=== PATIENT | male | born 1965 | race Hispanic/Latino ===

== ENCOUNTER 2019-07-22 00:07 | Emergency (ER) | payer SELFPAY ==
[2019-07-22 00:55] LABS: #Basophils 0.1 thou/uL (0.0-0.2); #Lymphocytes 3.1 thou/uL (1.20-3.40); #Monocytes 0.8 thou/uL (0.11-0.59); #Neutrophils 8.3 thou/uL (1.40-6.50); %Basophils 0.9 % (0.0-1.0); %Eosinophils 0.1 % (0.0-10.0); %Lymphocytes 25.5 % (21.0-51.0); %Monocytes 6.4 % (0.0-10.0); %Neutrophils 67.1 % (42.0-75.0); Mean Corpuscular HGB CONC 32.5 g/dL (32.0-36.0); Mean Corpuscular Hemoglobin 29.6 pg (27.0-31.0); Mean Corpuscular Volume 90.9 fL (78.0-98.0); Mean Platelet Volume 6.5 fL (7.4-10.4); Platelet Count 256 thou/uL (130-400); Red Blood Cell (RBC) Count 2.35 mill/uL (4.70-6.10); White Blood Cell (WBC) Count 12.3 thou/uL (4.8-10.8)
[2019-07-22 00:56] LABS: ALT (SGPT) 72 U/L (8-55); AST (SGOT) 176 U/L (5-34); Albumin 2.8 g/dL (3.5-5.0); Alkaline Phosphatase 134 U/L (40-110); Anion Gap 16 mmol/L (10-20); BUN (Urea Nitrogen) 27 mg/dL (8.4-25.7); Bilirubin, Total 1.1 mg/dL (0.2-1.2); Calc. Creatinine Clearance 0 mL/min (70-130); Calcium 7.2 mg/dL (7.8-10.44); Carbon Dioxide 20 mmol/L (22-29); Chloride 106 mmol/L (98-107); Estimated GFR-MDRD Greater than 90; Globulin 3.3 g/dL (2.4-3.5); Glucose 121 mg/dL (70-105); Potassium 4.9 mmol/L (3.5-5.1); Protein, Total 6.1 g/dL (6.0-8.3); Sodium 137 mmol/L (136-145)
[2019-07-22 00:58] LABS: Lactic Acid 4.1 mmol/L (0.5-2.2)
[2019-07-22 01:30] LABS: #Basophils 0.1 thou/uL (0.0-0.2); #Lymphocytes 2.9 thou/uL (1.20-3.40); #Monocytes 0.5 thou/uL (0.11-0.59); #Neutrophils 9.3 thou/uL (1.40-6.50); %Basophils 0.9 % (0.0-1.0); %Eosinophils 0.4 % (0.0-10.0); %Lymphocytes 22.4 % (21.0-51.0); %Monocytes 4.2 % (0.0-10.0); %Neutrophils 72.1 % (42.0-75.0); Hemoglobin 5.5 g/dL (14.0-18.0); Mean Corpuscular HGB CONC 31.8 g/dL (32.0-36.0); Mean Corpuscular Hemoglobin 29.1 pg (27.0-31.0); Mean Corpuscular Volume 91.5 fL (78.0-98.0); Mean Platelet Volume 6.3 fL (7.4-10.4); Platelet Count 214 thou/uL (130-400); RBC Distribution Width 16.7 % (11.5-14.5)
[2019-07-22] MEDS ORDERED: Sodium Chloride 0.9% 250 ML 250 ML ONE (01:36)
[2019-07-22 01:56] LABS: Base Excess-Venous -5.1 mmol/L (-2.0 to 3.0); Bicarbonate (HCO3v) 20.5 mmol/L (22.0-28.0); CO2 Tension (PvCO2) 39.6 mmHg (40.0-50.0)
[2019-07-22 02:02] LABS: Base Excess-Venous -7.7 mmol/L (-2.0 to 3.0); Bicarbonate (HCO3v) 20.1 mmol/L (22.0-28.0); vO2 Saturation-calc 91.1 % (60.0-85.0)
[2019-07-22 02:05] LABS: INR-International Normal Ratio 2.6; PTT 55.3 SEC (22.9-36.1); Prothrombin Time 27.9 SEC (12.0-14.7)
[2019-07-22 02:06] LABS: Acetaminophen Less than 6.0 mcg/mL (10.0-30.0); Alcohol Less than 10 mg/dL (Less than 10); Salicylate Less than 8.0 mg/dL (15.0-30.0)
--- NOTE | 2019-07-22 07:43 | RAD ---
SINGLE VIEW OF THE CHEST: COMPARISON: None. HISTORY: Endotracheal tube placement. FINDINGS: A single view of the chest shows a normal-sized cardiomediastinal silhouette. An endotracheal tube i s seen with its tip at the rojelio. An NG tube is seen in the stomach. Diffuse fluffy opacities are seen in the lungs. IMPRESSION: 1. Endotracheal tube should be withdrawn approximately 3 cm. 2. Multifocal opacities may represent pulmonary edema or multifocal infiltrates. CODE T POS: VYA
[2019-07-22] MEDS ORDERED: EPINEPHRINE 1 MG/10 ML-NACL IV ONE (09:00)
[2019-07-22] MEDS ORDERED: Sodium Bicarb 50 MEQ/50 ML Abboject 8.4% SYRINGE ONE (09:00)
[2019-08-19 10:57] LABS: CO2 Tension (PvCO2) 56.6 mmHg (40.0-50.0)
== END 2019-07-22 03:07 | disposition short-term general hospital (02) ==
LOC: NAV ERS 00:07
DX: N19 Unspecified kidney failure (principal); R41.82 Altered mental status, unspecified; K92.2 Gastrointestinal hemorrhage, unspecified; D64.9 Anemia, unspecified
CPT/HCPCS: 36430; 71045; 80053; 80307; 82330; 82803; 83605; 84484; 85025; 85610; 85730; 86850; 86900; 86901; 92950; 96360; 96361; 96374; 96375; J7050; P9016